=== PATIENT | female | born 1945 | race Caucasian/White ===

== ENCOUNTER 2017-05-08 16:35 | Emergency (ER) | payer OTHER ==
[~2017-05-08] VITALS: Ht 152.4 cm; Wt 68.0 kg
--- NOTE | ~2017-05-08 | EKG ---
[address] [address] ELECTROCARDIOGRAM REPORT Name: MACHELLE MESA Room #: DEP [facility]#: [id number] Admission: 05/08/17 Attend Phys: Discharge: 05/08/17 Date of : 45 Report #: [id number] THIS REPORT FOR: //name// [facility] ED Test Date: 2017-05-08 Test Time: 16:36:36 Pat Name: MACHELLE MESA Department: Room: Gender: F [employer] Teacher: TONY : 1945 Requested By: Yogesh Merritt Order Number: [id number] MD: Nicho Weems Measurements Intervals Reading Rate: 92 P: 33 MO: 146 QRS: -5 QRSD: 94 T: -17 QT: 345 QTc: 427 Interpretive Statements Sinus rhythm Borderline T abnormalities, diffuse leads Compared to ECG 05/05/2012 20:34:02 Right ventricular hypertrophy now present RSR' in V1 or V2 now present Sinus arrhythmia no longer present T-wave abnormality still present Electronically Signed On 05-11-2017 10:56:17 CDT by Nicho Weems [email or web address] <ELECTRONICALLY SIGNED> By: Nicho Weems MD 05/11/17 1056 [id number] [id number] Nicho Weems MD /EPI
[~2017-05-08 16:35] MED LIST: ACID CONTROLLER10 MG PO; ASPIRIN EC81 M1 PO; CALCIUM 500+D1 EAC2 PO; CALCIUM 600 +1 EAC1 PO; RANITIDINE 150150 M1 PO; RECLAST 55 MG/100 M IV
[2017-05-08] MEDS ORDERED: JANUVIA100 MG PO (17:13)
[2017-05-08] MEDS ORDERED: RANITIDINE HCL300 MG PO (17:14)
[2017-05-08 17:20] LABS: ABSOLUTE NEUTROPHILS 3.7 thou/uL (1.4-8.2); BASOPHILS 0.6 % (0.0-2.0); EOSINOPHILS 2.7 % (0.0-3.0); HEMATOCRIT 39.8 % (37.0-47.0); HEMOGLOBIN 13.4 gm/dL (12.0-15.0); LYMPHOCYTES 26.3 % (24.0-44.0); MANUAL DIFF NO; MCH 28.8 pg (26.0-34.0); MCHC 33.6 g/dL (28.0-37.0); MCV 85.5 fL (80.0-100.0); PLATELET COUNT 154 thou/uL (150-400); POLYS 61.4 % (36.0-66.0); RBC 4.66 mil/uL (4.20-5.00); RDW 14.3 % (10.5-14.5); WBC 6.1 thou/uL (4.0-11.0)
[2017-05-08 17:31] LABS: ANION GAP 7 mmol/L (7-16); BUN 13 mg/dL (7-18); CALCIUM 9.2 mg/dL (8.5-10.1); CHLORIDE 103 mmol/L (98-107); CO2 27 mmol/L (21-32); CREATININE 0.8 mg/dL (0.6-1.0); GLUCOSE 245 mg/dL (74-106); POTASSIUM 3.9 mmol/L (3.5-5.1); SODIUM 137 mmol/L (136-145)
[2017-05-08 17:42] LABS: ALKALINE PHOSPHATASE 120 U/L (46-116); DIRECT BILIRUBIN 0.1 mg/dL (<0.1-0.3); NT-PRO BRAIN NAT PEPTIDE 134 pg/mL (<300); SGOT 11 U/L (15-37); SGPT 18 U/L (30-65); TOTAL BILIRUBIN 0.5 mg/dL (<0.1-1.0); TROPONIN-I < 0.04 ng/mL (<0.04-0.07)
[2017-05-08 20:04] VITALS: BP 142/70
== END 2017-05-08 20:06 | disposition home or self-care (01) ==
LOC: ER 16:35
PROVIDERS: Physician Assistant
DX: R07.89 Other chest pain (principal); K21.9 Gastro-esophageal reflux disease without esophagitis; M81.0 Age-related osteoporosis without current pathological fracture; F10.99 Alcohol use, unspecified with unspecified alcohol-induced disorder; Z90.710 Acquired absence of both cervix and uterus; Z90.89 Acquired absence of other organs; Z86.19 Personal history of other infectious and parasitic diseases; Z88.8 Allergy status to other drugs, medicaments and biological substances

== ENCOUNTER → 2018-12-18 | Outpatient (CLI) | payer OTHER ==
[~2018-12-18] MED LIST changes: +JANUVIA100 MG PO; +RANITIDINE HCL300 MG PO
== END ==
LOC: RAD 13:47
DX: R76.11 Nonspecific reaction to tuberculin skin test without active tuberculosis (principal)